=== PATIENT | male | born 1925 | race Caucasian/White ===

== ENCOUNTER 2017-02-01 11:04 | Emergency (ER) | payer MEDICARE, OTHER ==
[~2017-02-01] VITALS: Ht 175.3 cm; Wt 61.0 kg
[~2017-02-01 11:04] MED LIST: ATOR20TA9 PO; CLOP300T5 PO; CLOP75TA22 PO; METO25TA35 PO; TAMS0.4C2 PO
[2017-02-01] MEDS ORDERED: DIPH,PERTUSS(ACELL),TET VAC/PF 0.5 ML IM-VACC ONE ×2 (11:30→12:24)
[2017-02-01] MEDS ORDERED: LIDOCAINE 2%, 20ML SQ ONE (11:30)
[2017-02-01 13:02] VITALS: BP 148/73
[2017-02-01] MEDS ORDERED: LIDOCAINE 1%, 20ML ONE (13:44)
== END 2017-02-01 14:40 | disposition home or self-care (01) ==
LOC: ED 13:20
DX: S61.452A Open bite of left hand, initial encounter (principal); W54.0XXA Bitten by dog, initial encounter; Y93.89 Activity, other specified; Y92.89 Other specified places as the place of occurrence of the external cause; Y99.8 Other external cause status; I10 Essential (primary) hypertension; E78.00 Pure hypercholesterolemia, unspecified; Z85.46 Personal history of malignant neoplasm of prostate
CPT/HCPCS: 12002; 90471; 90715